=== PATIENT | male | born 1995 ===

== ENCOUNTER 2024-01-15 16:16 | Outpatient (CLI) | payer BC, SELFPAY | END 2024-01-15 16:17 | disposition home or self-care (01) | LOC: NFLDREF 01-29 11:40 | PROVIDERS: Visit Provider Physician Assistant | DX: R10.13 Epigastric pain (principal) | CPT/HCPCS: 87338 ==

== ENCOUNTER 2024-02-14 09:10 | Outpatient (CLI) | payer BC, SELFPAY | END 2024-02-14 09:11 | disposition home or self-care (01) | PROVIDERS: PCP Family Medicine; Visit Provider Family Medicine | DX: R42 Dizziness and giddiness (principal); R53.83 Other fatigue; Z13.220 Encounter for screening for lipoid disorders; Z13.228 Encounter for screening for other metabolic disorders; Z13.29 Encounter for screening for other suspected endocrine disorder; Z13.21 Encounter for screening for nutritional disorder | CPT/HCPCS: 80053; 80061; 82306; 82607; 84443 ==

== ENCOUNTER 2025-01-28 14:40 | Outpatient (CLI) | payer OTHER, SELFPAY | END 2025-01-28 14:41 | disposition home or self-care (01) | PROVIDERS: PCP Family Medicine; Visit Provider Family Medicine | DX: R53.83 Other fatigue (principal); K21.9 Gastro-esophageal reflux disease without esophagitis; K59.09 Other constipation; R42 Dizziness and giddiness; F41.1 Generalized anxiety disorder | CPT/HCPCS: 80053; 82306; 84443 ==

== ENCOUNTER 2025-06-12 14:43 | Outpatient (CLI) | payer OTHER, SELFPAY | END 2025-06-12 14:44 | disposition home or self-care (01) | PROVIDERS: PCP Family Medicine; Visit Provider Family Medicine | DX: E55.9 Vitamin D deficiency, unspecified (principal); Z11.3 Encounter for screening for infections with a predominantly sexual mode of transmission; Z11.59 Encounter for screening for other viral diseases; Z11.4 Encounter for screening for human immunodeficiency virus [HIV] | CPT/HCPCS: 82306; 86592; 86703; 86803; 87340; 87491; 87591 ==